=== PATIENT | male | born 1975 | race Two or more races ===

== ENCOUNTER 2020-10-31 13:07 | Emergency (ER) | payer MEDICAID, SELFPAY ==
[2020-10-31 13:23] VITALS: BP 152/94; PULSE 83; RESP 18; TEMP 36.4; O2SAT 99; BMI 29.2
--- NOTE | 2020-10-31 14:33 | ED.EYEPROB ---
HPI - Eye Problem General Chief complaint: Eye Problems Stated complaint: lump on eye lid Time Seen by Provider: 10/31/20 14:32 History of Present Illness HPI Narrative: Patient complains of right upper eyelid stye that has been present for almost 2 weeks, no vision change no discharge from my no vision loss no eye pain Related Data Previous Rx's Medication Instructions Recorded cetirizine 10 mg PO DAILY PRN #14 cap 10/31/20 erythromycin 0.5 inch OPHTHALMIC (EYE) TID 5 10/31/20 Days #3.5 g Allergies Allergy/AdvReac Type Severity Reaction Status Date / Time No Known Allergies Allergy Verified 10/31/20 13:22 Review of Systems Review of Systems: Positive for right eye stye Negatives are no fever no chills no dizziness no eye pain no discharge from eye no vision loss no photophobia no skin rash Yes all other systems are reviewed and are negative [facility] Past Medical History Source: nursing notes reviewed Medical History (Updated 11/01/20 @ 00:01 by Ajith Rice) Patient denies medical problems Social History Social History Advance Directives: Yes Advance Directives Information Provided: Yes Advance Directives on File: No Physical Exam Vital Signs: Vital Signs: Last Vital Signs Temp 97.6 F 10/31/20 13:23 Pulse 83 10/31/20 13:23 Resp 18 10/31/20 13:23 BP 152/94 H 10/31/20 13:23 Pulse Ox 99 10/31/20 13:23 Body Mass Index 29.2 General appearance no distress The eye exam visual acuity was normal, pupils equal round reactive to light, extraocular motions intact, no discharge is no photophobia The right upper lid had a stye, there was no surrounding erythema there was no orbital erythema Pharynx clear Neck is supple Respiratory no distress Skin no rash Course Course Course Narrative: Patient with stye for 10 days is referred to eye doctor for possible drainage, no other eye problem now Discharge Plan Discharge Clinical Impression: Stye external Patient Disposition: Home, Self-Care Additional Instructions: Apply erythromycin ointment 3 times a day Warm soaks frequently As it has not improved in 2 weeks you may need to see an simulation specialist so call the eye doctor next week if it is not better Return to ER any worse condition or concerns Your blood pressure was high in the emergency room, this might mean that you have high blood pressure, best plan is to buy a home blood pressure cuff and check it at least twice a day for a week and see if it is always high Make an appointment with primary care doctor to be evaluated for possible hypertension Hypertension can damage the blood supply to every organ in her body over years and can cause many disabilities Prescriptions: New erythromycin 5 mg/gram (0.5 %) ointment 0.5 inch ophthalmic (eye) TID 5 Days Qty: 3.5 RF: 0 cetirizine 10 mg capsule 10 mg PO DAILY PRN (Reason: allergy symptoms) Qty: 14 RF: 0 Referrals: Neel Cruz [Physician] - 2 days (Right upper lid stye for more than 2 weeks not improving) Interventions: ED Discharge Assessment Last Done: 10/31/20 14:48 Discharge Date/Time: 10/31/20 14:48
== END 2020-10-31 14:48 | disposition home or self-care (01) ==
PROVIDERS: Emergency Provider Emergency Medicine
DX: H00.011 Hordeolum externum right upper eyelid (principal)
CPT/HCPCS: 99283

== ENCOUNTER 2021-04-13 08:12 | Emergency (ER) | payer OTHER, SELFPAY ==
[2021-04-13 08:30] VITALS: BP 140/86; PULSE 66; RESP 16; TEMP 35.7; O2SAT 99; BMI 29.2
--- NOTE | 2021-04-13 09:39 | ED_ITS ---
HPI - Back Pain/Injury General Chief Complaint: Back Pain/Injury Stated Complaint: lower back pain Time Seen by Provider: 04/13/21 09:21 Source: patient and family Mode of arrival: ambulatory Limitations: no limitations History of Present Illness HPI Narrative: 45-year-old male came in for evaluation of low back pain. Back pain started 2 days ago after was working in the attic and bringing down heavy boxes, patient started to have pain in the right lower back area. Pain is constant severe 7 out of 10,described as dull aching pain increased with movement or bending down nothing relieves the pain. No other associated symptoms nausea or vomiting. Related Data Previous Rx's Medication Instructions Recorded cetirizine 10 mg capsule 10 mg PO DAILY PRN #14 cap 10/31/20 erythromycin 5 mg/gram (0.5 %) eye 0.5 inch OPHTHALMIC (EYE) TID 5 10/31/20 ointment Days #3.5 g cyclobenzaprine 10 mg tablet 10 mg PO TID PRN #20 tab 04/13/21 ibuprofen 800 mg tablet 800 mg PO TID PRN #20 tab 04/13/21 Allergies Allergy/AdvReac Type Severity Reaction Status Date / Time No Known Allergies Allergy Verified 10/31/20 13:22 Review of Systems Review of Systems: All other systems are reviewed and are negative Constitutional: Reports as per HPI and Reports no additional constitutional complaints Eyes: Reports as per HPI and Reports no additional eye complaints Reports system reviewed and no additional complaints, except as documented Cardiovascular: Reports as per HPI and Reports no additional cardiovascular complaints Respiratory: Reports as per HPI and Reports no additional respiratory complaints Gastrointestinal: Reports as per HPI and Reports no additional gastrointestinal complaints Genitourinary: Reports no additional female genitourinary complaints Musculoskeletal: Reports no additional musculoskeletal complaints Skin/Breast: Reports system reviewed and no additional complaints, except as docu Psychiatric: Reports no additional psychiatric complaints Endocrine: Reports no additional endocrine complaints Hematologic/Lymphatic: Reports no additional hematologic/lymphatic complaints Allergic/Immunologic: Reports no additional allergic/immunologic complaints Reports system reviewed and no additional complaints, except as documented and Reports Abnormal speech present [facility] Past Medical History Medical History Patient denies medical problems Social History Social History Advance Directives: No Advance Directives Information Provided: Yes Physical Exam Vital Signs: Vital Signs: Last Vital Signs Temp 96.2 F L 04/13/21 08:30 Pulse 66 04/13/21 08:30 Resp 16 04/13/21 08:30 BP 140/86 H 04/13/21 08:30 Pulse Ox 99 04/13/21 08:30 Body Mass Index 29.2 Vital signs have been reviewed as appeared to be correct. Blood pressure normal. Heart rate normal. Respiration rate normal. Temperature normal. Oxygen saturation normal. Appearance: Alert. Oriented X3. No acute distress. Head: Normal external exam. Normocephalic. Atraumatic. No Deleon signs noted. No raccoon eyes noted Eyes: PERRLA. EOMI. Conjunctiva and sclera normal. Eyelids normal. ENT: TM's Normal. Pharynx normal. Uvula midline. Moist mucous membranes. No trismus noted. No drooling noted. No muffled voice noted. Neck: Normal inspection. Neck supple. FROM. No adenopathy. Thyroid Normal. No meningeal signs. No neck mass noted. CVS: Normal heart rate and rhythm. Heart sound normal. No murmurs noted. Pulses normal throughout. Respiratory: No respiratory distress. Painless inspiration. Breath sounds normal. No wheezes/rales/rhonchi noted. Chest nontender. No accessory muscle usage noted or decreased air movement noted. Abdomen: Soft and nontender. Bowel sounds normal in all 4 quadrants. No distention noted. No organomegaly noted. No visible injury noted. Back: No CVA tenderness. Full range of motion noted. Skin: Skin warm and dry. Normal skin color. Normal skin turgor. No rashes/lesions/lacerations noted. Extremities: No lower extremity edema. Extremities exhibit normal range of motion. Extremities nontender. Neuro: Oriented X 3. Cranial nerve exam: II-XII are grossly intact No motor deficit. No sensory deficit. Reflexes normal. Course Course Course Narrative: Assessment and plan. [age] year male came in with sprain of right sacroiliac joint. Rest, heating pad, muscle relaxant NSAIDs. Discharge Plan Discharge Clinical Impression: Strain of lumbar region Patient Disposition: Home, Self-Care Instructions: Low Back Strain (ED) Prescriptions: New cyclobenzaprine 10 mg tablet 10 mg PO TID PRN (Reason: muscle spasm) Qty: 20 RF: 0 ibuprofen 800 mg tablet 800 mg PO TID PRN (Reason: pain) Qty: 20 RF: 0 No Action erythromycin 5 mg/gram (0.5 %) ointment 0.5 inch ophthalmic (eye) TID 5 Days Qty: 3.5 RF: 0 cetirizine 10 mg capsule 10 mg PO DAILY PRN (Reason: allergy symptoms) Qty: 14 RF: 0 Referrals: Yonis Branham MD [Primary Care Provider] - 2 days Interventions: ED Discharge Assessment Last Done: 04/13/21 09:28 Discharge Date/Time: 04/13/21 09:30
== END 2021-04-13 09:30 | disposition home or self-care (01) ==
PROVIDERS: Emergency Provider Emergency Medicine; PCP Internal Medicine
DX: S39.012A Strain of muscle, fascia and tendon of lower back, initial encounter (principal); X50.0XXA Overexertion from strenuous movement or load, initial encounter; Y93.9 Activity, unspecified; Y92.009 Unspecified place in unspecified non-institutional (private) residence as the place of occurrence of the external cause; Y99.9 Unspecified external cause status; Z79.899 Other long term (current) drug therapy
CPT/HCPCS: 99283

== ENCOUNTER 2022-01-08 15:21 | Emergency (ER) | payer OTHER, SELFPAY ==
[2022-01-08 16:03] VITALS: BP 143/85; PULSE 58; RESP 16; TEMP 36.7; O2SAT 99; BMI 27.8
--- NOTE | 2022-01-08 16:39 | ED.BACK ---
HPI - Back Pain/Injury General Chief Complaint: Back Pain/Injury Stated Complaint: Back pain Time Seen by Provider: 01/08/22 16:16 Source: patient Mode of arrival: ambulatory Limitations: no limitations History of Present Illness HPI Narrative: Patient presents emergency department for evaluation of left lower back pain. Pain has been persistent over the past 3 weeks. It is made worse with movement, prolonged sitting, is somewhat alleviated with rest. Has trialed ibuprofen 600 mg at home without significant improvement. Reports a history of similar pain in the past, but this improved with ibuprofen. Denies any known precipitating injury. 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 Denies identifiable precipitating injury, fevers, chills, burning with micturition, urinary frequency, urgency, hesitancy, bladder or bowel dysfunction, numbness or tingling of the perineum or bilateral legs. Denies any recent surgical procedures, any known immune compromising conditions, personal history of cancer, or IV drug usage. MD elicited complaint: back pain Related Data Previous Rx's Medication Instructions Recorded cetirizine 10 mg capsule 10 mg PO DAILY PRN allergy 10/31/20 symptoms #14 caps erythromycin 5 mg/gram (0.5 %) eye 0.5 inch ophthalmic (eye) TID 5 10/31/20 ointment days #3.5 grams cyclobenzaprine 10 mg tablet 10 mg PO TID PRN muscle spasm #20 04/13/21 tabs ibuprofen 800 mg tablet 800 mg PO TID PRN pain #20 tabs 04/13/21 cyclobenzaprine 10 mg tablet 10 mg PO BEDTIME PRN muscle spasm 01/08/22 #7 tabs naproxen 500 mg tablet 500 mg PO BID PRN pain #10 tabs 01/08/22 Allergies Allergy/AdvReac Type Severity Reaction Status Date / Time No Known Allergies Allergy Verified 01/08/22 16:03 Review of Systems Review of Systems: Constitutional: No weight loss, fever, chills, weakness or fatigue. HEENT: No visual loss, blurred vision, double vision. No hearing loss, sneezing, congestion, runny nose or sore throat. Skin: No rash or itching. Cardiovascular: No chest pain, chest pressure or chest discomfort. No palpitations or pedal edema. Respiratory: No shortness of breath, cough or sputum production. Gastrointestinal: No anorexia, nausea, vomiting or diarrhea. No abdominal pain or blood in stool. Genitourinary: No burning micturition. No urinary frequency or incontinence. Neurologic: No headache, dizziness, syncope, unilateral weakness, ataxia, numbness or tingling in the extremities. No change in bowel or bladder control. Musculoskeletal: + Back pain as noted in HPI. No joint pain or stiffness. Hematologic: No bleeding or bruising. Lymphatics: No enlarged lymph nodes. Psychiatric:No depression or anxiety. Endocrine: No reports of sweating. No cold or heat intolerance. No polyuria or polydipsia. [facility] Past Medical History Attestation statement: The following information was validated with the patient. Source: old records reviewed Medical History Patient denies medical problems Social History Social History Advance Directives: No Advance Directives Information Provided: Yes Physical Exam Vital Signs: Vital Signs: Last Vital Signs Temp 98.1 F 01/08/22 16:03 Pulse 58 01/08/22 16:03 Resp 16 01/08/22 16:03 BP 143/85 H 01/08/22 16:03 Pulse Ox 99 01/08/22 16:03 O2 Del Method 01/08/22 16:03 BMI result Body Mass Index 27.8 Vital signs have been reviewed as normal and appeared to be correct. Blood pressure normal.? Heart rate normal.? Respiration rate normal. Temperature normal.? Oxygen saturation normal. Appearance: Alert.?Oriented to person, place and time. No acute distress.?Normal affect. Eyes: Pupils equal, round and reactive to light.? ENT: Pharynx normal.?? Neck: Normal inspection.? Neck supple.?? CVS: Heart sounds normal. Normal heart rate and rhythm.? Pulses normal; bilateral radial pulses 2+, bilateral posterior tibial/dorsalis pedis pulses 2+.? Respiratory: No respiratory distress.? Lung sounds clear to auscultation bilaterally?? Abdomen: Soft and non-tender. Normoactive bowel sounds. No pulsatile mass.?? Skin: Skin warm and dry.? Normal skin color.? Normal skin turgor.?? Extremities: No lower extremity edema.? No calf ttp? Back: + mild paraspinal muscular tenderness from lumbar region to coccyx. No CVA tenderness. No midline spinal tenderness, step-off's, or deformity. Full ROM intact in bilateral lower extremities. Straight leg test negative on right; Straight leg test negative on left. No rashes, lesions, areas of induration or fluctuance, or signs of infection noted., Neuro: Moves all extremities spontaneously. 5/5 strength in hip extension/flexion, abduction, adduction. Sensation to light touch intact bilaterally. Patellar and Achilles reflex 2+ bilaterally. No ataxia, gait normal and steady.. No focal neuro deficits. Course Course Course Narrative: Patient is a 46-year-old male with a significant past medical history presenting to emergency department for evaluation low back pain, atraumatic. Pain is most consistent with muscular pain, although cannot completely exclude herniated disc. On neurological exam there are no deficits. Not consistent with spinal fracture, spinal infection, epidural abscess, AAA, epidural abscess, or dissection. No high risk past medical history including incontinence, fever, immunosuppression, recent surgery or lumbar puncture, coagulopathy, significant trauma, recent unintentional weight loss, pulsatile mass, history of cancer, history of TB, history of IV drug use that would warrant MRI or CT. Not consistent with pyelonephritis, urinary tract infection, renal calculi, appendicitis, diverticulitis. On exam no concern for cauda equina syndrome. No imaging is currently indicated at this time. Plan for discharge home with prescription for naproxen cyclobenzaprine at bedtime, discussed worsening signs symptoms to return back to the emergency department for, and follow-up with primary care provider, and patient agreed with plan. MDM - Back Pain/Injury Lab Data Labs: Lab Results 01/08/22 Range/Units 16:48 Urine Color YELLOW Urine Appearance CLEAR Urine pH 5.5 (5.0-8.0) Ur Specific Golden 1.025 (1.005-1.025) Urine Protein NEG (NEG-TRACE) MG/DL Urine Glucose (UA) >=1000 H (NEG) MG/DL Urine Ketones NEG (NEG) MG/DL Urine Blood NEG (NEG) Urine Nitrite NEG (NEG) Ur Leukocyte Esterase NEG (NEG) Urine RBC 0-2 (0) /HPF Urine WBC 0-2 (0-4) /HPF Ur Squamous Epith Cells NONE /LPF Urine Bacteria NONE /LPF Discharge Plan Discharge Clinical Impression: Strain of lumbar region Patient Disposition: Home, Self-Care Instructions: Low Back Strain (ED), R.I.C.E. Treatment (ED), Lower Back Exercises (ED) Additional Instructions: Be sure to rest, stay well hydrated. You have been given and new prescription for naproxen, to use as needed for pain do not use Aleve, ibuprofen/Motrin, or aspirin while taking this medication. You may use Tylenol additionally for your pain. You have been given a prescription for cyclobenzaprine to be used as needed for pain at bedtime, as we discussed it may make you drowsy, you should not drive, operate machinery, or drink alcohol for at least 8 hours after taking this medication. Follow-up with your primary care doctor. Return to the emergency department as needed for any new or worsening symptoms or concerns. Prescriptions: New naproxen 500 mg tablet 500 mg PO BID PRN (Reason: pain) Qty: 10 0RF cyclobenzaprine 10 mg tablet 10 mg PO BEDTIME PRN (Reason: muscle spasm) Qty: 7 0RF No Action erythromycin 5 mg/gram (0.5 %) ointment 0.5 inch ophthalmic (eye) TID 5 Days Qty: 3.5 0RF cetirizine 10 mg capsule 10 mg PO DAILY PRN (Reason: allergy symptoms) Qty: 14 0RF cyclobenzaprine 10 mg tablet 10 mg PO TID PRN (Reason: muscle spasm) Qty: 20 0RF ibuprofen 800 mg tablet 800 mg PO TID PRN (Reason: pain) Qty: 20 0RF Stand Alone Forms: Work/School Release Interventions: ED Discharge Assessment Last Done: 01/08/22 17:52 Discharge Date/Time: 01/08/22 17:54
[2022-01-08 17:04] LABS: Appearance Urine CLEAR; Color Urine YELLOW; Glucose Urine UA >=1000 MG/DL (NEG); Leukocyte Esterase Urine NEG (NEG); Nitrite Urine NEG (NEG); PH 5.5 (5.0-8.0); Specific Gravity - Urine 1.025 (1.005-1.025); Urine Blood NEG (NEG); Urine Ketones NEG (NEG); Urine Protein NEG (NEG-TRACE)
[2022-01-08 18:41] LABS: RBC Urine 0-2 /HPF (0); WBC Urine 0-2 /HPF (0-4)
== END 2022-01-08 17:54 | disposition home or self-care (01) ==
PROVIDERS: Nurse Practitioner Family; Emergency Provider Student in an Organized Health Care Education/Training Program; PCP Internal Medicine
DX: M54.50 Low back pain, unspecified (principal); Z79.899 Other long term (current) drug therapy
CPT/HCPCS: 81001; 81003; 99283

== ENCOUNTER 2022-02-19 10:15 | Emergency (ER) | payer OTHER, SELFPAY ==
[2022-02-19 10:30] VITALS: BP 144/78; PULSE 71; RESP 18; TEMP 36.6; O2SAT 98; BMI 27.8
--- NOTE | 2022-02-19 11:45 | ED.GENADULT ---
HPI - General Adult General Chief complaint: General Medical Stated complaint: possible shingles under armpit Time Seen by Provider: 02/19/22 11:44 Source: patient Mode of arrival: ambulatory Limitations: no limitations History of Present Illness HPI narrative: Patient is vesicular rash on the back on the right side for last 5 days with burning sensation getting worse history of chickenpox at young age. No fever no other family member sick Related Data Previous Rx's Medication Instructions Recorded cetirizine 10 mg capsule 10 mg PO DAILY PRN allergy 10/31/20 symptoms #14 caps erythromycin 5 mg/gram (0.5 %) eye 0.5 inch ophthalmic (eye) TID 5 10/31/20 ointment days #3.5 grams cyclobenzaprine 10 mg tablet 10 mg PO TID PRN muscle spasm #20 04/13/21 tabs ibuprofen 800 mg tablet 800 mg PO TID PRN pain #20 tabs 04/13/21 cyclobenzaprine 10 mg tablet 10 mg PO BEDTIME PRN muscle spasm 01/08/22 #7 tabs naproxen 500 mg tablet 500 mg PO BID PRN pain #10 tabs 01/08/22 gabapentin 300 mg capsule 300 mg PO BID #60 caps 02/19/22 tramadol 50 mg tablet 50 mg PO Q6H PRN pain #20 tabs 02/19/22 valacyclovir 1 gram tablet 1,000 mg PO TID #20 tabs 02/19/22 (Valtrex) Allergies Allergy/AdvReac Type Severity Reaction Status Date / Time No Known Allergies Allergy Verified 01/08/22 16:03 Review of Systems Review of Systems: Yes all other systems are reviewed and are negative [facility] Past Medical History Medical History Patient denies medical problems Social History Social History Advance Directives: No Advance Directives Information Provided: No Physical Exam ED Vital Signs: Vital Signs - 24 hr 02/19/22 10:30 Temperature 98 F Pulse Rate 71 Respiratory Rate 18 Blood Pressure 144/78 H Pulse Oximetry 98 Oxygen Delivery Method Room Air BMI result Body Mass Index 27.8 Appearance: Alert. Oriented X3. No acute distress. ENT: Pharynx normal. Oral Mucosa moist Neck: Normal inspection. Neck supple. CVS: Normal heart rate and rhythm. Pulses normal. Respiratory: No respiratory distress. Equal air entry bilateral, Skin: Skin warm and dry. Vesicular rash right T7 and 6 dermatome Extremities: No lower extremity edema. Neuro: Oriented X 3. Medical Decision Making MDM Narrative Medical decision making narrative: Patient with herpes zoster rash on the right side uncomplicated will start on Valtrex and gabapentin Discharge Plan Discharge Clinical Impression: Herpes zoster Patient Disposition: Home, Self-Care Instructions: Shingles (ED) Additional Instructions: Cautious as advised Medication as prescribed Prescriptions: New valacyclovir [Valtrex] 1 gram tablet 1,000 mg PO TID Qty: 20 0RF gabapentin 300 mg capsule 300 mg PO BID Qty: 60 0RF tramadol 50 mg tablet 50 mg PO Q6H PRN (Reason: pain) Qty: 20 0RF No Action erythromycin 5 mg/gram (0.5 %) ointment 0.5 inch ophthalmic (eye) TID 5 Days Qty: 3.5 0RF cetirizine 10 mg capsule 10 mg PO DAILY PRN (Reason: allergy symptoms) Qty: 14 0RF cyclobenzaprine 10 mg tablet 10 mg PO TID PRN (Reason: muscle spasm) Qty: 20 0RF ibuprofen 800 mg tablet 800 mg PO TID PRN (Reason: pain) Qty: 20 0RF naproxen 500 mg tablet 500 mg PO BID PRN (Reason: pain) Qty: 10 0RF cyclobenzaprine 10 mg tablet 10 mg PO BEDTIME PRN (Reason: muscle spasm) Qty: 7 0RF Interventions: ED Discharge Assessment Last Done: 02/19/22 12:10 Discharge Date/Time: 02/19/22 12:11
[2022-02-19] MEDS: Gabapentin 300 MG CAPSULE PO (12:04)
[2022-02-19] MEDS: valACYclovir HCL 1,000 MG TABLET 1000 MG PO (12:04)
[2022-02-19] MEDS: traMADoL HCL 50 MG TABLET PO (12:04)
== END 2022-02-19 12:11 | disposition home or self-care (01) ==
PROVIDERS: Emergency Provider Internal Medicine; PCP Internal Medicine
DX: B02.9 Zoster without complications (principal)
CPT/HCPCS: 99283

== ENCOUNTER 2024-04-18 13:53 | Emergency (ER) | payer OTHER, SELFPAY ==
[2024-04-18 14:22] VITALS: BP 136/93; PULSE 86; RESP 16; TEMP 37; O2SAT 97; BMI 29.2
--- NOTE | 2024-04-18 14:44 | ED.GENADULT ---
HPI - General Adult General Chief complaint: Skin/Abscess/Foreign Body Stated complaint: Burn L Arm 2 Wks Ago Time Seen by Provider: 04/18/24 14:29 Source: patient Mode of arrival: ambulatory Limitations: no limitations History of Present Illness ED Provider: Torey Barrera PA-C HPI narrative: 48 yold male with pmh of diabetes presents to the ED evaluated for left forearm burn that occurrend 2 weeks ago. Patient states 2 weeks ago while working on his radiator the antifreeze burned his left forearm that was erythematous and developed blisters. patient states blisters self resolved and the burn started improving. Patient states no fever, chills, nuasea, vomitting, worsening redness, bluish/black discolration, or stiffness. Patient uptodate with tdap. Patient was sent by PCP for evaluation. patient states left forearm redness from burn has not worsened and is the same. Related Data Previous Rx's ?Medication ?Instructions ?Recorded cetirizine 10 mg capsule 10 mg PO DAILY PRN allergy 10/31/20 symptoms #14 caps erythromycin 5 mg/gram (0.5 %) eye 0.5 inch ophthalmic (eye) TID 5 10/31/20 ointment days #3.5 grams cyclobenzaprine 10 mg tablet 10 mg PO TID PRN muscle spasm #20 04/13/21 tabs ibuprofen 800 mg tablet 800 mg PO TID PRN pain #20 tabs 04/13/21 cyclobenzaprine 10 mg tablet 10 mg PO BEDTIME PRN muscle spasm 01/08/22 #7 tabs naproxen 500 mg tablet 500 mg PO BID PRN pain #10 tabs 01/08/22 gabapentin 300 mg capsule 300 mg PO BID #60 caps 02/19/22 tramadol 50 mg tablet 50 mg PO Q6H PRN pain #20 tabs 02/19/22 valacyclovir 1 gram tablet 1,000 mg PO TID #20 tabs 02/19/22 (Valtrex) bacitracin 500 unit/gram topical 1 appl topical TID 7 days #30 grams 04/18/24 ointment doxycycline hyclate 100 mg capsule 100 mg PO BID 7 days #14 caps 04/18/24 Allergies Allergy/AdvReac Type Severity Reaction Status Date / Time No Known Allergies Allergy Verified 04/18/24 14:26 Review of Systems Review of Systems: left forearm burn Yes all other systems are reviewed and are negative FOR[facility]LY [facility] Past Medical History Medical History Patient denies medical problems Physical Exam ED Vital Signs: Vital Signs - 24 hr 04/18/24 14:22 04/18/24 15:01 Temperature 98.6 F 98.6 F Pulse Rate 86 86 Respiratory Rate 16 16 Blood Pressure 136/93 H 136/93 H Pulse Oximetry 97 97 Oxygen Delivery Method Room Air BMI result Body Mass Index 29.2 Const General: cooperative, healthy appearing, comfortable, no acute distress, well developed, alert, awake and Physically active Orientation/consciousness: patient oriented x3 HENMT Head: Yes normal to inspection, Yes No palpable skull fracture present, Yes normocephalic and Yes atraumatic Eyes General: appearance normal, both eyes and all related structures Neck Neck: Yes normal visual inspection, Yes full ROM, Yes no lymphadenopathy, Yes no meningeal signs, Yes trachea midline, Yes supple, No anterior neck swelling and No tender Chest Chest palpation & inspection: normal inspection of the chest and normal palpation of entire chest wall Resp Effort & Inspection: normal respiratory effort and able to speak in complete sentences Auscultation: clear to auscultation bilaterally Cardio Jugular venous distension: no JVD Heart sounds: S1 normal heart sound present and S2 normal heart sound present GI Inspection: Yes normal to inspection Palpation (GI): Soft to palpation, not firm, nontender, no guarding and not rigid General: Yes no CVA tenderness Back/Spine/Pelvis Back: no CVA tenderness and No back tenderness Skin Other: left forearm burn General skin exam: no rashes or lesions noted, elasticity normal and turgor normal Neuro General: patient oriented x3, gait normal, tone normal, moves all extremities, Normal light touch and pain sensation, no meningeal signs, no focal motor deficits, CN's II-XI intact bilaterally and normal sensation to monofilament Extrem General: Yes normal to inspection, Yes full ROM and Yes capillary refill normal Elbow/forearm/wrist images: 1. erythema that is not warm, tender, or weeping. negative for pus discharge, fould odor, fever, chills, circular erythema, ecchymosis, stiffness, blisters, red streaks bluish/black discoloration, or coldness. rest of extremity normal. Motor, neuro, and vascular exam is intact. Psych Appearance: grossly normal, well kempt and not disheveled Medical Decision Making Medical Decision Making MDM Narrative: 48-year-old presents to ED for left forearm burn that occurred 2 weeks ago due to antifreeze from a radiator. Patient states brain has actually improved. Initial burn was read with blisters. Patient states blisters fell off on its own. Erythema from initial burn is still present and has not worsened. He denies any fever, chills, swelling, nausea, vomiting, or tingling in extremity. Patient has complete range of motion of left upper extremity. Primary care provider send patient to the ED for evaluation due to history of diabetes was concerned for severe infection. Not suspecting sepsis. Not suspecting osteomyelitis. Burn is improving. Patient is up-to-date with tetanus. Patient was not prescribed any cream. Patient was prescribed Keflex by his primary care provider 2 days ago but did not take the medication. Patient does not need any lab work. Patient states same redness present from 2 weeks ago and has not worsened. We will add doxycycline due to history of diabetes but my suspicion for sepsis osteomyelitis is low. Patient will follow-up with wound clinic. Patient and explained worrisome signs and informed to return to the ED immediately. not suspecting compartment syndrome, arterial occlusion, necrotizing fascitits, osteomyleiits, DVT, fracture, or dislocation. Left lower abdominal small healed burned negative for signs of infection. Differential Diagnosis Differential Diagnoses: The differential diagnosis associated with the presentation includes (Second-degree burn) Admission/Observation Consideration of admission/observation: Escalation of care including admission/observation considered Independent Historian Clinical information obtained from an independent historian. History obtained from or confirmed by: Spouse () and Other (Patient) External Record Review External record reviewed: Other (Prior visits) Prescription Management I considered prescription management with: Antibiotic Discharge Plan Discharge Clinical Impression: Second degree burn of arm Patient Disposition: Home, Self-Care Instructions: Second Degree Burn (ED) Additional Instructions: You will need follow-up with wound clinic. Presently not suspecting severe infection. From history physical exam your burn is improving but due to history of diabetes that recommend you taking antibiotics as prescribed by her primary care provider which was Keflex. We will also give you doxycycline. You will be given bacitracin cream. You informed us you were up-to-date with tetanus. Return to the ED immediately for any fever, chills, swelling, worsening redness, red streaks, bluish black discoloration, or any other concerning symptoms. Prescriptions: New doxycycline hyclate 100 mg capsule 100 mg PO BID 7 Days Qty: 14 0RF bacitracin 500 unit/gram ointment 1 appl topical TID 7 Days Qty: 30 0RF No Action erythromycin 5 mg/gram (0.5 %) ointment 0.5 inch ophthalmic (eye) TID 5 Days Qty: 3.5 0RF cetirizine 10 mg capsule 10 mg PO DAILY PRN (Reason: allergy symptoms) Qty: 14 0RF cyclobenzaprine 10 mg tablet 10 mg PO TID PRN (Reason: muscle spasm) Qty: 20 0RF ibuprofen 800 mg tablet 800 mg PO TID PRN (Reason: pain) Qty: 20 0RF naproxen 500 mg tablet 500 mg PO BID PRN (Reason: pain) Qty: 10 0RF cyclobenzaprine 10 mg tablet 10 mg PO BEDTIME PRN (Reason: muscle spasm) Qty: 7 0RF valacyclovir [Valtrex] 1 gram tablet 1,000 mg PO TID Qty: 20 0RF gabapentin 300 mg capsule 300 mg PO BID Qty: 60 0RF tramadol 50 mg tablet 50 mg PO Q6H PRN (Reason: pain) Qty: 20 0RF Referrals: [facility] [place] Wound Care Management [Provider Group] (Improving left forearm second-degree burn.) Stand Alone Forms: Work/School Release Interventions: ED Discharge Assessment Last Done: 04/18/24 15:01 Discharge Date/Time: 04/18/24 15:02 Print Language: Kinyarwanda
[2024-04-18 15:01] VITALS: BP 136/93; PULSE 86; RESP 16; TEMP 37; O2SAT 97
== END 2024-04-18 15:02 | disposition home or self-care (01) ==
PROVIDERS: Emergency Provider Student in an Organized Health Care Education/Training Program; PCP Internal Medicine
DX: T22.20XA Burn of second degree of shoulder and upper limb, except wrist and hand, unspecified site, initial encounter (principal); T31.0 Burns involving less than 10% of body surface; X08.8XXA Exposure to other specified smoke, fire and flames, initial encounter; Y93.89 Activity, other specified; Y92.89 Other specified places as the place of occurrence of the external cause; Y99.8 Other external cause status
CPT/HCPCS: 99282; 99283

== ENCOUNTER 2024-04-25 13:00 | Outpatient (RCR) | payer OTHER, SELFPAY | END 2024-05-29 12:42 | disposition home or self-care (01) | LOC: HO.WCC 13:00 | PROVIDERS: PCP Internal Medicine; Visit Provider Surgery | DX: T22.032D Burn of unspecified degree of left upper arm, subsequent encounter (principal); T31.0 Burns involving less than 10% of body surface; E11.40 Type 2 diabetes mellitus with diabetic neuropathy, unspecified; I10 Essential (primary) hypertension; X19.XXXD Contact with other heat and hot substances, subsequent encounter; Z79.84 Long term (current) use of oral hypoglycemic drugs; Z79.899 Other long term (current) drug therapy | CPT/HCPCS: 99212 ==